=== PATIENT | male | born 1995 | race Caucasian/White ===

== ENCOUNTER 2018-05-17 10:15 | Emergency (ER) | payer OTHER ==
--- NOTE | 2018-05-17 10:28 | EDPHY ---
H & P Time Seen by Provider: 05/17/18 10:24 HPI/ROS: CHIEF COMPLAINT: Responded to Narcan HISTORY OF PRESENT ILLNESS: Patient is a 23-year-old man who admits to using oxycodone, whippits and cocaine last night. This morning his friends state that he collapsed in front of them. They began CPR. When EMS arrived he had pulses but was unresponsive. They administered 2 mg IV Narcan and the patient awoke gradually. The patient is now without complaint. He states that he was not using any substances this morning. Severity: Moderate Modifying factors: None REVIEW OF SYSTEMS: Constitutional: denies: chills, fever, recent illness, recent injury EENTM: denies: blurred vision, double vision, nose congestion Respiratory: denies: cough, shortness of breath Cardiac: denies: chest pain, irregular heart rate, lightheadedness, palpitations Gastrointestinal/Abdominal: denies: abdominal pain, diarrhea, nausea, vomiting, blood streaked stools Genitourinary: denies: dysuria, frequency, hematuria, pain Musculoskeletal: denies: joint pain, muscle pain Skin: denies: lesions, rash, jaundice, bruising Neurological: See HPI denies: headache, numbness, paresthesia, tingling, dizziness, weakness Hematologic/Lymphatic: denies: blood clots, easy bleeding, easy bruising Immunologic/allergic: denies: HIV/AIDS, transplant 10 systems reviewed and negative except as noted EXAM: GENERAL: Well-appearing, well-nourished and in no acute distress. HEAD: Atraumatic, normocephalic. EYES: Pupils equal round and reactive to light, extraocular movements intact, sclera anicteric, conjunctiva are normal. ENT: TMs normal, nares patent, oropharynx clear without exudates. Moist mucous membranes. NECK: Normal range of motion, supple without lymphadenopathy or JVD. LUNGS: Breath sounds clear to auscultation bilaterally and equal. No wheezes rales or rhonchi. HEART: Regular rate and rhythm without murmurs, rubs or gallops. ABDOMEN: Soft, nontender, normoactive bowel sounds. No guarding, no rebound. No masses appreciated. BACK: No CVA tenderness, no spinal tenderness, step-offs or deformities EXTREMITIES: Normal range of motion, no pitting or edema. No clubbing or cyanosis. NEUROLOGICAL: Cranial nerves II through XII grossly intact. Normal speech, normal gait. 5/5 strength, normal movement in all extremities, normal sensation , normal reflexes PSYCH: Normal mood, normal affect. SKIN: Warm, dry, normal turgor, no visible rashes or lesions. Source: Patient, EMS Exam Limitations: No limitations - Medical/Surgical History Hx Asthma: No Hx Chronic Respiratory Disease: No Hx Diabetes: No Hx Cardiac Disease: No Hx Renal Disease: No Hx Cirrhosis: No Hx Alcoholism: No Hx HIV/AIDS: No - Family History Significant Family History: No pertinent family hx - Social History Alcohol Use: Occasionally Drug Use: Cocaine, Other Constitutional: Initial Vital Signs Temperature (C) 36.5 C 05/17/18 10:22 Heart Rate 91 05/17/18 10:22 Respiratory Rate 18 05/17/18 10:22 Blood Pressure 142/87 H 05/17/18 10:22 O2 Sat (%) 94 05/17/18 10:22 O2 Delivery Mode Room Air Allergies/Adverse Reactions: No Known Allergies Allergy (Unverified 05/17/18 10:20) Home Medications: Medication Instructions Recorded NK [No Known Home Meds] 05/17/18 Medical Decision Making - Diagnostics EKG Interpretation: An EKG obtained and was read and documented in trace view. Please see trace view for full reading and report. Sinus rhythm, no acute ischemic changes or arrhythmias ED Course/Re-evaluation: Patient is currently asymptomatic. It is unclear the timing of his drug use and his appearing collapse this morning. EKG is reassuring. Paramedics were suspicious that he was using whippits this morning because they found him next to several empty canisters. It is unclear whether or not the patient took more opiates this morning and this is why he collapsed and responded to Narcan verses took some other substance and the spontaneous improvement simply correlated in time with the administration of Narcan. I did call poison Control . There are no known arrhythmia is caused by nitrous oxide. It can cause asphyxia. Police are telling me now that the patient woke up this morning and then used 3 canisters of nitrous oxide and this is when he collapsed. 12:05 p.m. patient remains asymptomatic. He is sitting up in bed and eating. No arrhythmias on the monitor. No difficulty breathing or chest pain. Eager to go home. Discussed indications for returning. manager council spoke with him about drug abuse and resources for help. Differential Diagnosis: Partial list of the Differential diagnosis considered include but were not limited to; overdose, polysubstance abuse, respiratory arrest, syncope and although unlikely based on the history and physical exam, I also considered a cardiac arrest, seizure, the hemorrhage, trauma. I discussed these differential diagnoses and the plan with the patient as well as the usual and expected course. The patient understands that the diagnosis is provisional and that in medicine we are not always correct and that further workup is often warranted. Usual and customary warnings were given. All of the patient's questions were answered. The patient was instructed to return to the emergency department should the symptoms at all worsen or return, otherwise to followup with the physician as we discussed. Departure - Departure Disposition: Home, Routine, Self-Care Clinical Impression: Polysubstance abuse Condition: Fair Instructions: Polysubstance Abuse (ED) Referrals: Patient,NotPresent [Unknown] - As per Instructions Hailee Alcala MD [Medical Doctor] - As per Instructions
--- NOTE | 2018-05-17 10:32 | CPEKG ---
Test Reason : OPEN Blood Pressure : / mmHG Vent. Rate : 089 BPM Atrial Rate : 088 BPM P-R Int : 159 ms QRS Dur : 102 ms QT Int : 400 ms P-R-T Axes : 067 055 064 degrees QTc Int : 487 ms Sinus rhythm Borderline prolonged QT interval Confirmed by Ernie Reynoso ([id number]) on 05/17/2018 10:32:08 AM Referred By: PHYSICIAN ED Confirmed By:Ernie Reynoso
[2018-05-17 12:18] VITALS: BP 111/60
== END 2018-05-17 12:17 | disposition home or self-care (01) ==
LOC: MERGE 10:15
DX: F19.10 Other psychoactive substance abuse, uncomplicated (principal)